=== PATIENT | female | born 1975 | race Caucasian/White ===

== ENCOUNTER → 2020-03-14 08:38 | Outpatient (CLI) | payer MEDICAID | END | disposition home or self-care (01) | LOC: D.NM 08:38 | PROVIDERS: ATTEND Internal Medicine Gastroenterology | DX: R10.10 Upper abdominal pain, unspecified (principal); R11.2 Nausea with vomiting, unspecified; K21.9 Gastro-esophageal reflux disease without esophagitis ==

== ENCOUNTER 2020-12-14 10:10 | Day surgery (SDC) | payer MEDICAID ==
[~2020-12-14] VITALS: Ht 149.9 cm; Wt 95.0 kg
--- NOTE | ~2020-12-14 | OP ---
PATIENT NAME: NEREYDA RIVERA MEDICAL RECORD: [id number] :79 LOCATION:[facility] ADMISSION DATE: SURGEON: ERIN KWOK MD DATE OF OPERATION: 12/14/2020 PROCEDURE: Upper endoscopy. PREOPERATIVE DIAGNOSES: The patient is a pleasant female who has a history of abdominal pain and dysphagia. MEDICATION: Propofol per anesthesia. DESCRIPTION OF PROCEDURE: Upper endoscopy was performed. The endoscope was advanced through the mouth and advanced to the second part of the duodenum. The proximal and mid esophagus were normal. In the distal esophagus was mild erythema consistent with esophagitis. Distal esophageal biopsies were taken. There was also a mild esophageal stricture. This was dilated with a 18, 19 and 20 mm balloon. In the gastric body was erythema consistent with gastritis. Random gastric biopsies were taken. The small bowel was normal. Small bowel biopsies were taken to evaluate for any small bowel disorders. The patient tolerated the procedure well. There were no immediate complications. A 2-centimeter hiatal hernia was viewed on retroflexion. FINAL DIAGNOSES: Mild esophagitis, distal esophageal stricture, mild gastritis, 2 cm hiatal hernia. Duodenum normal. PLAN: Check histology results. Advance diet. Return to GI office. This patient is already on a proton pump inhibitor. More recommendations to be made after biopsy results. TRANSINT:[id number] Voice Confirmation ID: [id number] DOCUMENT ID: [id number] ERIN KWOK MD CC: [id number] DICTATION DATE: 12/14/20 1222 VESSEL BUILDER: 12/14/20 1241 [facility] [address] [place] [address]
[2020-12-14 10:48] LABS: ANION GAP 13.7 mmol/L (8-16); CREATININE - SERUM 0.9 mg/dL (0.6-1.3); POTASSIUM - SERUM 3.7 mmol/L (3.5-5.1)
[2020-12-14 10:49] LABS: BASOPHILS 1.2 % (0-2); EOSINOPHILS 2.8 % (0-7); HEMATOCRIT 42.5 % (36.0-48.0); HEMOGLOBIN 14.3 g/dL (12-16); LYMPHOCYTES 28.7 % (15-50); MCH 29.2 pg (26.0-34.0); MCHC 33.6 g/dL (31.0-37.0); MCV 86.7 fL (80.0-100.0); MEAN PLATELET VOLUME 8.2 fL (7.4-10.4); MONOCYTES 9.7 % (2-11); NEUTROPHILS 57.6 % (40-80); PLATELET COUNT 351 10x3/uL (130-400); RBC 4.89 10x6/uL (4.00-5.40); RDW 13.9 % (11.5-14.5)
[2020-12-14 11:09] LABS: APTT 27.6 SECONDS (22.8-39.4)
[2020-12-14 11:13] VITALS: Ht 149.9 cm; Wt 95.0 kg
[2020-12-14] MEDS ORDERED: PROTONIX40 MG PO (11:21)
[2020-12-14] MEDS ORDERED: ZOFRAN4 MG PO (11:22)
[2020-12-14] MEDS ORDERED: MINIPRESS 5 MG C5 MG PO (11:22)
[2020-12-14] MEDS ORDERED: BUSPIRONE HCL30 MG PO (11:22)
[2020-12-14] MEDS ORDERED: CYMBALTA30 MG PO (11:22)
[2020-12-14] MEDS ORDERED: SEROQUEL50 MG PO (11:23)
[2020-12-14] MEDS ORDERED: ROPINIROLE HCL1 MG PO (11:23)
[2020-12-14] MEDS ORDERED: LYRICA75 MG PO (11:23)
[2020-12-14] MEDS ORDERED: CYCLOBENZAPRINE5 MG PO (11:23)
[2020-12-14] MEDS ORDERED: IMITREX100 MG PO (11:24)
[2020-12-14] MEDS ORDERED: LIPITOR10 MG PO (11:24)
[2020-12-14] MEDS ORDERED: HYDROCHLOROTH12.5 M1 PO (11:24)
[2020-12-14 11:47] LABS: INR 1.13 (0.85-1.17); PROTIME 13.4 SECONDS (11.6-15.0)
--- NOTE | 2020-12-14 13:07 | NUR ---
DC TEACHING COMPLETE TO PT AND , VERBALIZED UNDERSTANDING. PIV REMOVED WITH CATHETER INTACT, FAMILY HELPED PT TO DRESS, VOIDED IN BATHROOM 1327 PT DC'D VIA WC ACCOMPANIED BY THIS NURSE TO POV WITH ALL BELONGINGS AND DC PACKET. FAMILY MEMBER DRIVING.
== END 2020-12-14 13:27 | disposition home or self-care (01) ==
LOC: D.OPS 10:10
PROVIDERS: ATTEND Internal Medicine Gastroenterology
DX: R13.10 Dysphagia, unspecified (principal); K21.9 Gastro-esophageal reflux disease without esophagitis; R10.10 Upper abdominal pain, unspecified; K22.2 Esophageal obstruction; K20.90 Esophagitis, unspecified without bleeding; K29.70 Gastritis, unspecified, without bleeding; K44.9 Diaphragmatic hernia without obstruction or gangrene; R11.2 Nausea with vomiting, unspecified

== ENCOUNTER → 2020-12-28 10:19 | Outpatient (CLI) | payer MEDICAID ==
[2020-12-14 11:13] VITALS: BMI 42.3
[~2020-12-28 10:19] MED LIST: BUSPIRONE HCL30 MG PO; CYCLOBENZAPRINE5 MG PO; CYMBALTA30 MG PO; HYDROCHLOROTH12.5 M1 PO; IMITREX100 MG PO; LIPITOR10 MG PO; LYRICA75 MG PO; MINIPRESS 5 MG C5 MG PO; PROTONIX40 MG PO; ROPINIROLE HCL1 MG PO; SEROQUEL50 MG PO; ZOFRAN4 MG PO
[2020-12-28 11:17] LABS: ALBUMIN 3.4 g/dL (3.4-5.0); BILIRUBIN - DIRECT 0.17 mg/dL (0.00-0.30); BILIRUBIN - INDIRECT 0.35 mg/dL (0.00-1.00); BILIRUBIN - TOTAL 0.52 mg/dL (0.2-1.3); PROTEIN - SERUM 6.8 g/dL (6.4-8.2)
== END | disposition home or self-care (01) ==
LOC: D.US 10:19
PROVIDERS: ATTEND Internal Medicine Gastroenterology
DX: K76.0 Fatty (change of) liver, not elsewhere classified (principal)